=== PATIENT | female | born 1965 | race Caucasian/White ===

== ENCOUNTER 2018-02-01 14:22 | Inpatient (IN) ==
[2018-02-01] MEDS ORDERED: 0.9 % Sodium Chloride 1,000 ML IVC ONE (14:29)
--- NOTE | 2018-02-01 14:34 | Emergency Department Note ---
Disposition Clinical Impression: Confusion Nausea & vomiting Qualifiers: Vomiting type: unspecified Vomiting Intractability: unspecified Qualified Code( s): R11.2 - Nausea with vomiting, unspecified UTI (urinary tract infection) Qualifiers: Urinary tract infection type: acute cystitis Hematuria presence: without hematuria Qualified Code(s): N30.00 - Acute cystitis without hematuria Disposition: Admitted As Inpatient Condition: Fair Referrals: NONE,PCP [Primary Care Provider] - Dequan Mclean [Family Provider] - Forms: ED Satisfaction Letter Time of Disposition: 16:44 Altered Mental Status HPI - General Chief Complaint: ED Altered Mental Status Stated Complaint: hypergylcemia Time Seen by Provider: 02/01/18 14:27 Source: patient Mode of arrival: ambulatory Limitations: no limitations Nursing Notes Reviewed: Yes Vital Signs Reviewed: Yes - History of Present Illness HPI Narrative: 52-year-old diabetic with nausea vomiting not able to keep anything down with some confusion. MD complaint: altered mental status, other Onset (ago): Just [employer] (Nausea vomiting) Timing confirmed by: spouse Pain Severity: mild Consistency of Symptoms: getting worse Context: history of similar presentation (With UTIs) Associated symptoms: Reports: nausea/vomiting - Related Data Allergies Allergy/AdvReac Type Severity Reaction Status Date / Time codeine AdvReac See Verified 02/01/18 14:26 Comments All systems ED: reviewed and negative except as stated. Constitutional: Reports: fever. Denies: chills, weakness, weight change Eyes: Denies: eye pain, eye discharge, vision change ENT ED: Denies: ear pain, throat pain, dental pain, hearing loss, epistaxis, congestion, dysphagia Cardiovascular: Denies: chest pain, palpitations, dyspnea on exertion, edema, syncope Respiratory: Denies: cough, dyspnea, wheezes, hemoptysis, stridor Gastrointestinal: Denies: abdominal pain, nausea, vomiting, diarrhea, constipation, hematemesis, melena, hematochezia Genitourinary: Denies: dysuria, frequency, hematuria, discharge Musculoskeletal: Reports: arthralgia. Denies: back pain, neck pain, myalgia Integumentary: Denies: rash, abrasion, lesions Neurological: Denies: headache, weakness, numbness, paresthesias, confusion, abnormal gait, vertigo Psychiatric: Denies: anxiety, depression, suicidal thoughts, homicidal thoughts , auditory hallucinations, visual hallucinations Endocrine: Denies: fatigue Hematological/Lymphatic: Denies: easy bleeding, easy bruising Allergic/Immunologic: Denies: facial swelling, urticaria Past Medical History - Past Medical History Medical history: Reports: diabetes, hyperlipidemia, hypertension, thyroid disease Psychiatric history: Reports: no psych history - Social History Smoking Status: Never smoker Alcohol use: Reports: none Drug use: Reports: none Physical Exam - General Limitations: no limitations General appearance: alert, anxious - Head Head exam: atraumatic, normocephalic, normal inspection - Eye Eye exam: Present: normal appearance, PERRL, EOMI - ENT ENT exam: normal exam, normal oropharynx, mucous membranes moist - Neck Neck exam: Present: normal inspection, full ROM, trachea midline - Chest Chest inspection: Present: normal inspection, symmetric chest wall rise - Respiratory Respiratory exam: Present: normal lung sounds bilaterally - Cardiovascular Cardiovascular exam: Present: regular rate, normal rhythm, normal heart sounds - Abdominal Exam Abdominal exam: Present: soft, Non-Tender. Absent: tenderness, distention, guarding, rebound, rigidity - Extremities Exam Extremities exam: Present: normal inspection, full ROM. Absent: tenderness, pedal edema - Expanded Lower Extremity Exam Neurovascular/Tendon exam: Absent: motor deficit, sensory deficit, tendon deficit Gait: observed and normal - Back Exam Back exam: Present: normal inspection, full ROM. Absent: tenderness - Neurological Exam Neurological exam: Present: alert, oriented X3 - Psychiatric Psychiatric exam: Present: normal affect, normal mood - Skin Skin exam: Present: warm, dry, intact, normal color Course Vital Signs Temperature 100.3 F H 02/01/18 14:23 Pulse Rate 122 02/01/18 14:23 Respiratory Rate 16 02/01/18 14:23 Blood Pressure 104/68 02/01/18 14:23 O2 Sat by Pulse Oximetry 95 02/01/18 14:23 Temperature 100.3 F H 02/01/18 14:23 Pulse Rate 109 02/01/18 16:50 Respiratory Rate 20 02/01/18 16:50 Blood Pressure 111/64 02/01/18 16:50 O2 Sat by Pulse Oximetry 95 02/01/18 16:50 Oxygen Delivery Oxygen Delivery Room Air Altered Mental Status - Lab Data Lab results reviewed: Yes I reviewed the patient's lab results. Result diagrams: 02/01/18 14:56 04/01/18 14:56 Lab Results 02/01/18 02/01/18 02/01/18 Range/Units 14:56 14:56 14:56 WBC 9.3 (4.3-11.1) K/mcL RBC 4.74 (3.82-4.97) M/mcL Hgb 13.7 (11.5-15.4) g/dL Hct 39.7 (35.3-44.9) % MCV 83.8 (83.0-100.0) fL MCH 28.9 (28.0-33.3) pg MCHC 34.5 (31.6-35.5) g/dL RDW 13.4 (11.5-14.5) % Plt Count 188 (140-400) K/mcL MPV 10.9 (9.4-12.4) fL Immature Gran % 0.8 (0-4) % Seg Neutrophils % 93.0 % Lymphocytes % 3.7 % Monocytes % 2.1 % Eosinophils % 0.1 % Basophils % 0.3 % Neutrophils # 8.7 (1.6-8.9) K/mcL Lymphocytes # 0.3 L (0.6-4.6) K/mcL Monocytes # 0.2 (0.0-1.3) K/mcL Eosinophils # 0.0 (0.0-0.6) K/mcL Basophils # 0.0 (0.0-0.2) K/mcL PT 10.4 (9.4-12.1) Seconds INR 1.0 APTT 27.9 (26.0-36.0) Seconds Sodium 132 L (136-145) mEq/L Potassium 3.5 (3.5-5.1) mEq/L Chloride 97 L (98-107) mEq/L Carbon Dioxide 19 L (23-29) mEq/L BUN 9 (6-20) mg/dL Creatinine 0.71 (0.60-1.20) mg/dL Est GFR ( Amer) > 60 (> 60) Est GFR (Non-Af Amer) > 60 (> 60) BUN/Creatinine Ratio 13 (6-26) Glucose 364 H (70-105) mg/dL Calculated Osmolality 287 (280-300) Lactic Acid (0.5-2.2) mmol/L Calcium 9.3 (8.6-10.3) mg/dL Total Bilirubin 1.0 (0.3-1.0) mg/dL Direct Bilirubin 0.2 (0.0-0.2) mg/dL Indirect Bilirubin 0.8 (0.0-1.2) mg/dL AST 11 L (13-39) Units/L ALT 12 (7-52) Units/L Alkaline Phosphatase 85 (34-104) Units/L Ammonia (16-53) mcmol/L Troponin I < 0.03 (< 0.04) ng/mL Serum Total Protein 6.9 (6.4-8.9) g/dL Albumin 3.9 (3.5-5.7) g/dL Globulin 3.0 (2.4-3.5) g/dL Albumin/Globulin Ratio 1.3 (1.1-2.2) Urine Color (Yellow) Urine Clarity (Clear) Urine pH (5.0-8.0) pH Units Ur Specific Glendo (1.010-1.025) Urine Protein (Neg-Trace) mg/dL Urine Glucose (UA) (Normal) mg/dL Urine Ketones (Negative) mg/dL Urine Blood (Negative) Urine Nitrite (Negative) Urine Bilirubin (Negative) Urine Urobilinogen (Normal) mg/dL Ur Leukocyte Esterase (Negative) Urine Microscopic RBC (0-3) per hpf Urine Microscopic WBC (0-3) per hpf Ur Squamous Epith Cells (None-Few) per lpf Urine Bacteria (None-Few) per hpf Hyaline Casts (None-Few) per lpf Ur Culture Indicated? (NO) Urine Opiates Screen (Wcktwv=128) ng/mL Ur Barbiturates Screen (Ghiyjc=350) ng/mL Ur Phencyclidine Scrn (Cutoff=25) ng/mL Ur Amphetamines Screen (Wtcxcn=6637) ng/mL U Benzodiazepines Scrn (Wrosre=162) ng/mL Urine Cocaine Screen (Cutoff= 300) ng/mL U Marijuana (THC) Screen (Cutoff = 50) ng/mL Ethyl Alcohol < 10 (Less than 10) mg/dL Specimen Rejected 02/01/18 02/01/18 02/01/18 Range/Units 14:56 14:56 15:20 WBC (4.3-11.1) K/mcL RBC (3.82-4.97) M/mcL Hgb (11.5-15.4) g/dL Hct (35.3-44.9) % MCV (83.0-100.0) fL MCH (28.0-33.3) pg MCHC (31.6-35.5) g/dL RDW (11.5-14.5) % Plt Count (140-400) K/mcL MPV (9.4-12.4) fL Immature Gran % (0-4) % Seg Neutrophils % % Lymphocytes % % Monocytes % % Eosinophils % % Basophils % % Neutrophils # (1.6-8.9) K/mcL Lymphocytes # (0.6-4.6) K/mcL Monocytes # (0.0-1.3) K/mcL Eosinophils # (0.0-0.6) K/mcL Basophils # (0.0-0.2) K/mcL PT (9.4-12.1) Seconds INR APTT (26.0-36.0) Seconds Sodium (136-145) mEq/L Potassium (3.5-5.1) mEq/L Chloride (98-107) mEq/L Carbon Dioxide (23-29) mEq/L BUN (6-20) mg/dL Creatinine (0.60-1.20) mg/dL Est GFR ( Amer) (> 60) Est GFR (Non-Af Amer) (> 60) BUN/Creatinine Ratio (6-26) Glucose (70-105) mg/dL Calculated Osmolality (280-300) Lactic Acid 2.4 H (0.5-2.2) mmol/L Calcium (8.6-10.3) mg/dL Total Bilirubin (0.3-1.0) mg/dL Direct Bilirubin (0.0-0.2) mg/dL Indirect Bilirubin (0.0-1.2) mg/dL AST (13-39) Units/L ALT (7-52) Units/L Alkaline Phosphatase (34-104) Units/L Ammonia (16-53) mcmol/L Troponin I (< 0.04) ng/mL Serum Total Protein (6.4-8.9) g/dL Albumin (3.5-5.7) g/dL Globulin (2.4-3.5) g/dL Albumin/Globulin Ratio (1.1-2.2) Urine Color Yellow (Yellow) Urine Clarity Clear (Clear) Urine pH 6.0 (5.0-8.0) pH Units Ur Specific Glendo 1.030 H (1.010-1.025) Urine Protein Trace (Neg-Trace) mg/dL Urine Glucose (UA) >=1000 H (Normal) mg/dL Urine Ketones 80 H (Negative) mg/dL Urine Blood Negative (Negative) Urine Nitrite Negative (Negative) Urine Bilirubin Negative (Negative) Urine Urobilinogen Normal (Normal) mg/dL Ur Leukocyte Esterase Negative (Negative) Urine Microscopic RBC 3-5 H (0-3) per hpf Urine Microscopic WBC 15-30 H (0-3) per hpf Ur Squamous Epith Cells Many H (None-Few) per lpf Urine Bacteria Few (None-Few) per hpf Hyaline Casts None Seen (None-Few) per lpf Ur Culture Indicated? NO (NO) Urine Opiates Screen (Fqapzj=366) ng/mL Ur Barbiturates Screen (Wzxekf=639) ng/mL Ur Phencyclidine Scrn (Cutoff=25) ng/mL Ur Amphetamines Screen (Sxwmot=7115) ng/mL U Benzodiazepines Scrn (Vwtvvn=523) ng/mL Urine Cocaine Screen (Cutoff= 300) ng/mL U Marijuana (THC) Screen (Cutoff = 50) ng/mL Ethyl Alcohol (Less than 10) mg/dL Specimen Rejected Miscellaneous 02/01/18 02/01/18 Range/Units 15:20 16:09 WBC (4.3-11.1) K/mcL RBC (3.82-4.97) M/mcL Hgb (11.5-15.4) g/dL Hct (35.3-44.9) % MCV (83.0-100.0) fL MCH (28.0-33.3) pg MCHC (31.6-35.5) g/dL RDW (11.5-14.5) % Plt Count (140-400) K/mcL MPV (9.4-12.4) fL Immature Gran % (0-4) % Seg Neutrophils % % Lymphocytes % % Monocytes % % Eosinophils % % Basophils % % Neutrophils # (1.6-8.9) K/mcL Lymphocytes # (0.6-4.6) K/mcL Monocytes # (0.0-1.3) K/mcL Eosinophils # (0.0-0.6) K/mcL Basophils # (0.0-0.2) K/mcL PT (9.4-12.1) Seconds INR APTT (26.0-36.0) Seconds Sodium (136-145) mEq/L Potassium (3.5-5.1) mEq/L Chloride (98-107) mEq/L Carbon Dioxide (23-29) mEq/L BUN (6-20) mg/dL Creatinine (0.60-1.20) mg/dL Est GFR ( Amer) (> 60) Est GFR (Non-Af Amer) (> 60) BUN/Creatinine Ratio (6-26) Glucose (70-105) mg/dL Calculated Osmolality (280-300) Lactic Acid (0.5-2.2) mmol/L Calcium (8.6-10.3) mg/dL Total Bilirubin (0.3-1.0) mg/dL Direct Bilirubin (0.0-0.2) mg/dL Indirect Bilirubin (0.0-1.2) mg/dL AST (13-39) Units/L ALT (7-52) Units/L Alkaline Phosphatase (34-104) Units/L Ammonia 29 (16-53) mcmol/L Troponin I (< 0.04) ng/mL Serum Total Protein (6.4-8.9) g/dL Albumin (3.5-5.7) g/dL Globulin (2.4-3.5) g/dL Albumin/Globulin Ratio (1.1-2.2) Urine Color (Yellow) Urine Clarity (Clear) Urine pH (5.0-8.0) pH Units Ur Specific Glendo (1.010-1.025) Urine Protein (Neg-Trace) mg/dL Urine Glucose (UA) (Normal) mg/dL Urine Ketones (Negative) mg/dL Urine Blood (Negative) Urine Nitrite (Negative) Urine Bilirubin (Negative) Urine Urobilinogen (Normal) mg/dL Ur Leukocyte Esterase (Negative) Urine Microscopic RBC (0-3) per hpf Urine Microscopic WBC (0-3) per hpf Ur Squamous Epith Cells (None-Few) per lpf Urine Bacteria (None-Few) per hpf Hyaline Casts (None-Few) per lpf Ur Culture Indicated? (NO) Urine Opiates Screen Negative (Guhvlv=343) ng/mL Ur Barbiturates Screen Negative (Cwmtxv=777) ng/mL Ur Phencyclidine Scrn Negative (Cutoff=25) ng/mL Ur Amphetamines Screen Negative (Hxmflr=2855) ng/mL U Benzodiazepines Scrn Negative (Gepjvf=035) ng/mL Urine Cocaine Screen Negative (Cutoff= 300) ng/mL U Marijuana (THC) Screen Negative (Cutoff = 50) ng/mL Ethyl Alcohol (Less than 10) mg/dL Specimen Rejected - Radiology Data Radiology results reviewed: Yes I reviewed the patient's radiology results. Chest X-Ray 02/01/18 14:28 IMPRESSION: 1. No acute radiographic abnormality in the chest. D/ / Santy Ness MD / Santy Ness MD Interpreting Provider: Santy Ness MD Cervical Spine CT 02/01/18 14:29 IMPRESSION: No acute abnormality of the cervical spine with multilevel degenerative changes most pronounced at C5-C6 and C6-C7 as described. D/ / Oxana Bishop MD / Oxana Bishop MD Interpreting Provider: Oxana Bishop MD Head CT 02/01/18 14:30 IMPRESSION: No acute intracranial abnormality. D/ / Jorgito Osei MD / Jorgito Osei MD Interpreting Provider: Jorgito Osei MD Checklist - LKW: 3-4.5 hrs Add. Warnings/Precautions Patient/family understanding: The patient/family members have been counseled and understood the risk, benefit , and alternatives of treatment. NIH Stroke Scale - Level of Consciousness LOC: Alert - LOC Questions LOC Questions: Answers both correctly - LOC Commands LOC Commands: Performs both correctly - Best Gaze Best Gaze: Normal - Visual Visual: No visual loss - Facial Palsy Facial Palsy: Normal - Motor Arms Motor Arm-Left: No drift for 10 seconds Motor Arm-Right: No drift for 10 seconds - Motor Legs Motor Leg-Left: No drift for 5 seconds Motor Leg-Right: No drift for 5 seconds - Limb Ataxia Limb Ataxia: Normal, No Ataxia - Sensory Sensory: Normal - Best Language Best Language: No aphasia - Dysarthria Dysarthria: Normal - Extinction and Inattention Extinction and Inattention: Normal - NIHSS Total Score NIHSS Total Score: 0
[2018-02-01 15:11] LABS: Basophils % 0.3 %; Eosinophils % 0.1 %; Hematocrit 39.7 % (35.3-44.9); Hemoglobin 13.7 g/dL (11.5-15.4); Immature Granulocytes % 0.8 % (0-4); Lymphocytes # 0.3 K/mcL (0.6-4.6); Lymphocytes % 3.7 %; Mean Corpuscular HGB Conc 34.5 g/dL (31.6-35.5); Mean Corpuscular Hemoglobin 28.9 pg (28.0-33.3); Mean Corpuscular Volume 83.8 fL (83.0-100.0); Mean Platelet Volume 10.9 fL (9.4-12.4); Monocytes # 0.2 K/mcL (0.0-1.3); Monocytes % 2.1 %; Neutrophils # 8.7 K/mcL (1.6-8.9); Platelet Count 188 K/mcL (140-400); Red Blood Count 4.74 M/mcL (3.82-4.97); Red Cell Distribution Width 13.4 % (11.5-14.5)
[2018-02-01 15:15] LABS: Prothrombin Time 10.4 Seconds (9.4-12.1)
[2018-02-01 15:18] LABS: Activated Partial Thrombo Time 27.9 Seconds (26.0-36.0)
[2018-02-01 15:34] LABS: Bilirubin,Urine Negative (Negative); Blood,Urine Negative (Negative); Clarity,Urine Clear (Clear); Color,Urine Yellow (Yellow); Glucose,Urine (UA) >=1000 mg/dL (Normal); Ketones,Urine 80 mg/dL (Negative); Leukocyte Esterase,Urine Negative (Negative); Nitrite,Urine Negative (Negative); Protein,Urine Trace mg/dL (Neg-Trace); Urobilinogen,Urine Normal (Normal)
[2018-02-01 15:36] LABS: Bacteria,Urine Few per hpf (None-Few); Hyaline Casts,Urine None Seen per lpf (None-Few); Squamous Epithelial Cell,Urine Many per lpf (None-Few); WBC,Urine 15-30 per hpf (0-3)
[2018-02-01 15:38] LABS: Troponin I < 0.03 ng/mL (< 0.04)
[2018-02-01 15:39] LABS: Alanine Aminotransferase 12 Units/L (7-52); Albumin 3.9 g/dL (3.5-5.7); Albumin/Globulin Ratio 1.3 (1.1-2.2); Alkaline Phosphatase 85 Units/L (34-104); Aspartate Amino Transferase 11 Units/L (13-39); BUN/Creatinine Ratio 13 (6-26); Bilirubin,Direct 0.2 mg/dL (0.0-0.2); Bilirubin,Indirect 0.8 mg/dL (0.0-1.2); Blood Urea Nitrogen 9 mg/dL (6-20); Calcium 9.3 mg/dL (8.6-10.3); Carbon Dioxide 19 mEq/L (23-29); Chloride 97 mEq/L (98-107); Ethanol < 10 mg/dL (Less than 10); Glucose 364 mg/dL (70-105); Osmolality,Calculated 287 (280-300); Potassium 3.5 mEq/L (3.5-5.1); Sodium 132 mEq/L (136-145); Total Protein 6.9 g/dL (6.4-8.9); eGFR For African Americans > 60 (> 60); eGFR For Non-African Americans > 60 (> 60)
[2018-02-01 15:43] LABS: Amphetamine Screen,Urine Negative ng/mL (Cutoff=1000); Barbiturate Screen,Urine Negative ng/mL (Cutoff=200); Benzodiazepines Screen,Urine Negative ng/mL (Cutoff=200); Cannabinoid Screen,Urine Negative ng/mL (Cutoff = 50); Cocaine Screen,Urine Negative ng/mL (Cutoff= 300); Opiate Screen,Urine Negative ng/mL (Cutoff=300); Phencyclidine Screen,Urine Negative ng/mL (Cutoff=25)
[2018-02-01] MEDS ORDERED: cefTRIAXone 1,000 MG in Water for inj. (sterile) 20 ML 10 ML IVP ONE (16:36)
--- NOTE | 2018-02-01 17:30 | Internal Med History&Physical ---
Date of Encounter: 02/01/18 Time of Encounter: 17:24 Assessment and Plan (1) Confusion Current visit: Yes Status: Acute Possible metabolic encephalopathy from uncontrolled diabetes, fever, UTI. When I saw the patient, she is alert and oriented 3. Her feels she is back to normal. From examination she does not have focal neurologic deficiency , and slurry speech (2) UTI (urinary tract infection) Current visit: Yes Status: Acute Continue ceftriaxone Qualifiers: Urinary tract infection type: acute cystitis Hematuria presence: without hematuria Qualified Code(s): N30.00 - Acute cystitis without hematuria (3) Diabetes Current visit: Yes Status: Chronic Patient was on metformin and glipizide at home, will add a sliding scale due to the unable to tolerate oral intake Qualifiers: Diabetes mellitus type: type 2 Diabetes mellitus shelter insulin use: without shelter use Diabetes mellitus complication status: without complication Qualified Code(s): E11.9 - Type 2 diabetes mellitus without complications (4) Nausea & vomiting Current visit: Yes Status: Acute Nausea vomiting likely from acute gastritis, supportive care Qualifiers: Vomiting type: unspecified Vomiting Intractability: non-intractable Qualified Code(s): R11.2 - Nausea with vomiting, unspecified (5) Hypertension Current visit: Yes Status: Chronic Continue home medications Qualifiers: Hypertension type: essential hypertension Qualified Code(s): I10 - Essential (primary) hypertension (6) Hyperlipemia Current visit: Yes Status: Chronic Qualifiers: Hyperlipidemia type: other hyperlipidemia Qualified Code(s): E78.4 - Other hyperlipidemia (7) Hypothyroidism Current visit: Yes Status: Chronic Continue home medication Qualifiers: Hypothyroidism type: acquired Qualified Code(s): E03.9 - Hypothyroidism, unspecified (8) IBS (irritable bowel syndrome) Current visit: Yes Status: Chronic Stable Qualifiers: Irritable bowel syndrome type: with diarrhea Qualified Code(s): K58.0 - Irritable bowel syndrome with diarrhea (9) Dehydration Current visit: Yes Status: Acute Continue IV fluids Internal Medicine - H&P: HPI Chief complaint: nausea and vomiting Admitted From: Home Plans for Post Hospital Care: Home History of present illness: Ms. Munoz is a 52 year old female who has history of diabetes,hypothyroidism, hyperlipidemia, hypertension irritata bowel syndrome presented to emergency room for hyperglycemia and nausea vomiting. Patient has history of diabetes on metformin and glipizide developed her nausea and vomiting 2 days ago, unable to keep food down. Her sugar has been running above 400. She feels extremely thirsty, drink a lot of water, and a frequently urination. Her notes stated that she was so tired and and dry mouth. When I saw the patient, she is alert oriented 3. she denies headache, no focal weakness, denies abdominal pain. She does have irritated bowel syndrome has chronic diarrhea. He emergency room she was found UTI WBC 15 to 30. Sugar was 364. She has fever 100.3 influenza is negative. Chest x-ray is negative. She had had a CT of head which is negative, C-spine CT shows DJD's. Patient is going to be admitted for uncontrolled diabetes, hyperglycemia nausea vomiting Dehydration. Past Med Surg Social Fam HX - Past Medical History Medical history: diabetes, hyperlipidemia, hypertension, thyroid disease Psychiatric history: no psych history - Social History Smoking Status: Never smoker Alcohol use: none Drug use: none Internal Medicine - H&P: Meds Atorvastatin [Lipitor] 40 mg PO HS 02/01/18 [History] GlipiZIDE [Glipizide Xl] 5 mg PO BID 02/01/18 [History] Levothyroxine Sodium [Levoxyl] 75 mcg PO DAILY 02/01/18 [History] Lisinopril [Zestril] 5 mg PO DAILY 02/01/18 [History] Metformin HCl [Metformin HCl ER] 500 mg PO BID 02/01/18 [History] 3 Allergy/AdvReac Type Severity Reaction Status Date / Time codeine AdvReac See Verified 02/01/18 14:26 Comments All Systems PM: A 10-system review of systems was performed and is negative for pertinent findings except as documented above in the HPI. - Constitutional Vitals: Temp Pulse Resp BP Pulse Ox 100.3 F H 109 20 111/64 95 02/01/18 14:23 02/01/18 16:50 02/01/18 16:50 02/01/18 16:50 02/01/18 16:50 General appearance: Present: cooperative, A&O X 3, pleasant Exam: CONSTITUTIONAL: Patient appears as an age appropriate female well developed, in no acute distress. EYES Clear sclerae, bilateral pupils are equal, reactive to light and accommodation. Extraocular movements are intact RESPIRATORY: No accessory muscle use, bilateral clear to auscultation, no wheezing, no crackles/rales. CARDIOVASCULAR: Regular heart rate, normal S1 and S2, no murmurs GASTROINTESTINAL: bowel sounds present, soft, no tenderness. No hepatosplenomegaly. No bilateral CVA tenderness MUSCULOSKELETAL: Joints in normal range of motion, no clubbing, no edema, no cyanosis. Bilateral peripheral pulses 2+ LYMPHATIC no lymphadenopathy in neck, groin and axilla bilaterally, no thyromegaly. NEUROLOGIC: CN II to XII are grossly intact, no focal neurological deficit. Deep tendon reflexes 2+ bilaterally. Normal light touch sensation to upper and lower extremity PSYCHIATRIC: Oriented x3, with good insight, mood is euthymic. No hallucinations or delusions. SKIN: Skin warm and dry, no rashes, no open wound. Internal Med - H&P Results - Labs CBC & Chem 7: 02/01/18 14:56 02/01/18 14:56
[2018-02-01] MEDS ORDERED: Dextrose Gel 15 GM/37.5 ML TUBE PO PRN ×2 (17:39)
[2018-02-01] MEDS ORDERED: D5% in Water 1,000 ML IVC PRN (17:39)
[2018-02-01] MEDS ORDERED: *HR* Dextrose 50 % in Water (Syg) 50 ML SYRINGE IVP PRN (17:39)
[2018-02-01] MEDS ORDERED: Naloxone 0.4 MG/ML INJ IVP PRN (17:41)
[2018-02-01] MEDS ORDERED: Ringers Solution, Lactated 3,000 ML IVC SCH (17:45)
[2018-02-01] MEDS: Insulin DETEMIR 100 UNIT/ML X5UNITS SQ SCH (20:27)
[2018-02-01] MEDS: Insulin LISPRO 300 UNITS/3 ML VIAL SQ SCH (20:30)
[2018-02-01] MEDS: Ringers Solution, Lactated 1,000 ML IVC SCH (20:30)
[2018-02-01] MEDS: Ondansetron 4 MG/2 ML VIAL IVP PRN (20:40)
[2018-02-02] MEDS: Ringers Solution, Lactated 1,000 ML IVC SCH ×4 (01:21→19:40)
[2018-02-02 07:39] LABS: BUN/Creatinine Ratio 13 (6-26); Blood Urea Nitrogen 7 mg/dL (6-20); Calcium 8.6 mg/dL (8.6-10.3); Carbon Dioxide 25 mEq/L (23-29); Chloride 102 mEq/L (98-107); Glucose 200 mg/dL (70-105); Magnesium 1.4 mg/dL (1.6-2.6); Osmolality,Calculated 282 (280-300); Potassium 3.1 mEq/L (3.5-5.1); Sodium 134 mEq/L (136-145); eGFR For African Americans > 60 (> 60); eGFR For Non-African Americans > 60 (> 60)
[2018-02-02 07:44] LABS: Hematocrit 34.1 % (35.3-44.9); Hemoglobin 11.6 g/dL (11.5-15.4); Immature Platelets 4.7 % (1.1-6.1); Mean Corpuscular Hemoglobin 28.7 pg (28.0-33.3); Mean Corpuscular Volume 84.4 fL (83.0-100.0); Mean Platelet Volume 10.8 fL (9.4-12.4); Red Blood Count 4.04 M/mcL (3.82-4.97); Red Cell Distribution Width 13.7 % (11.5-14.5)
[2018-02-02] MEDS: Insulin LISPRO 300 UNITS/3 ML VIAL SQ SCH ×4 (08:13→20:37)
[2018-02-02] MEDS: Acetaminophen 325 MG TABLET PO PRN ×2 (08:14→16:08)
[2018-02-02 08:30] LABS: Estimated Average Glucose 289 mg/dl; Hemoglobin A1C 11.7 %
--- NOTE | 2018-02-02 12:43 | Electrocardiograph Report ---
[address] [address] Test Date: 2018-02-01 Pat Name: Minal Munoz Department: 102 Room: 3A23 Gender: F Automotive Finance Manager: Ramandeep : 1965 Requested By: Cristofer Morgan Order Number: [id number] Reading MD: Ryder Wood Measurements Intervals [place] Rate: 108 P: 22 VT: 108 QRS: 42 QRSD: 90 T: 23 QT: 324 QTc: 388 Interpretive Statements SINUS TACHYCARDIA WITH SHORT VT INTERVAL Electronically Signed On 02-02-2018 12:41:46 EDT by Ryder Wood
--- NOTE | 2018-02-02 12:47 | Internal Med Progress Note ---
Date of Encounter: 02/02/18 Time of Encounter: 12:39 - Assessment and plan (1) Hyperglycemia Current Visit: Yes Status: Acute Assessment and plan: Patient with N/V and acute illness unable to take PO meds. Continue sliding scale, continue to hold home medications (2) Sepsis Current Visit: Yes Status: Suspected Assessment and plan: Possible Sepsis versus acute gastroenteritis 2 SIRS criteria on admission - tachycardia and fever Possibly bacterial infection/sepsis versus viral gastritis. Possible UTI though UA was only showing 15-30 but she did complain of dysuria so suspect possible LA elevated at 2.4 - but she was severely dehydrated Continue Rocephin, add azithromycin for possible LRTI Qualifiers: Sepsis type: sepsis due to unspecified organism Qualified Code(s): A41.9 - Sepsis, unspecified organism (3) Confusion Current Visit: Yes Status: Acute Assessment and plan: Patient was dehydrated with elevated glucose, likely cause now resolved and she is at baseline. (4) Dehydration Current Visit: Yes Status: Acute (5) Nausea & vomiting Current Visit: Yes Status: Acute Assessment and plan: Continue Zofran prn Qualifiers: Vomiting type: unspecified Vomiting Intractability: non-intractable Qualified Code(s): R11.2 - Nausea with vomiting, unspecified (6) Diabetes Current Visit: Yes Status: Chronic Assessment and plan: Continue sliding scale encourage PO intake Qualifiers: Diabetes mellitus type: type 2 Diabetes mellitus penitentiary insulin use: without intermediate school teacher use Diabetes mellitus complication status: without complication Qualified Code(s): E11.9 - Type 2 diabetes mellitus without complications (7) Hyperlipemia Current Visit: Yes Status: Chronic Qualifiers: Hyperlipidemia type: other hyperlipidemia Qualified Code(s): E78.4 - Other hyperlipidemia (8) Hypertension Current Visit: Yes Status: Chronic Qualifiers: Hypertension type: essential hypertension Qualified Code(s): I10 - Essential (primary) hypertension (9) Hypothyroidism Current Visit: Yes Status: Chronic Qualifiers: Hypothyroidism type: acquired Qualified Code(s): E03.9 - Hypothyroidism, unspecified (10) IBS (irritable bowel syndrome) Current Visit: Yes Status: Chronic Qualifiers: Irritable bowel syndrome type: with diarrhea Qualified Code(s): K58.0 - Irritable bowel syndrome with diarrhea - Subjective Interval history: No complaints. She had fever overnight with T max 103.1 with HR 105-111. She admits to chills and poor appetite, and headache. She denies chest pain, SOB, neck pain, photophobia, sinus pain, sore throat, rhinorrhea, sputum, abdominal pain. Has chronic diarrhea and states there are no changes. - Constitutional Vitals: Temp Pulse Resp BP Pulse Ox 98.6 F 97 16 103/67 94 02/02/18 11:03 02/02/18 11:03 02/02/18 11:03 02/02/18 11:03 02/02/18 11:03 General appearance: Present: cooperative, A&O X 3, pleasant Exam: CVS: RRR Lungs: CTAB, no wrr Abd: Soft, Nt/nd, normal bowel sounds Ext: no edema Skin: warm, dry, intact Internal Medicine: Result - Labs CBC & Chem 7: 02/02/18 06:36 02/02/18 06:36 Labs: Short CBC 02/02/18 Range/Units 06:36 WBC 5.7 (4.3-11.1) K/mcL Hgb 11.6 D (11.5-15.4) g/dL Hct 34.1 L (35.3-44.9) % Plt Count 147 (140-400) K/mcL BMP 02/02/18 06:36 Sodium 134 L Potassium 3.1 L Chloride 102 Carbon Dioxide 25 BUN 7 Creatinine 0.54 L Glucose 200 H Calcium 8.6 - ABG Interpretation ABG results: PT/INR, D-dimer PT 10.4 Seconds (9.4-12.1) 02/01/18 14:56 Consult Discharge Plan - Plan Referrals: NONE,PCP [Primary Care Provider] - Dequan Mclean [Family Provider] -
[2018-02-02] MEDS ORDERED: Azithromycin 500 MG in D5% in Water 250 ML IVPB SCH (13:00)
[2018-02-02] MEDS: MetroNIDAZOLE 500 MG/100 ML 500 MG/100 ML BAG IVPB SCH (16:04)
[2018-02-02] MEDS ORDERED: cefTRIAXone 1,000 MG in Water for inj. (sterile) 20 ML 10 ML IVP SCH (17:00)
[2018-02-02 20:17] LABS: Adenovirus Not Detected (Not Detect); Bordetella Pertussis Not Detected (Not Detect); Chlamydophila pneumoniae Not Detected (Not Detect); Coronavirus 229E Not Detected (Not Detect); Coronavirus HKU1 Not Detected (Not Detect); Coronavirus NL63 Not Detected (Not Detect); Coronavirus OC43 Not Detected (Not Detect); Human Metapneumovirus Not Detected (Not Detect); Human Rhinovirus/Enterovirus Not Detected (Not Detect); Influenza A Subtype 2009 H1 Not Detected (Not Detect); Influenza A Untypeable Not Detected (Not Detect); Influenza B Not Detected (Not Detect); Mycoplasma pneumoniae Not Detected (Not Detect); Parainfluenza Virus 1 Not Detected (Not Detect); Parainfluenza Virus 2 Not Detected (Not Detect); Parainfluenza Virus 3 Not Detected (Not Detect); Parainfluenza Virus 4 Not Detected (Not Detect); Respiratory Syncytial Virus Not Detected (Not Detect)
[2018-02-02] MEDS: Insulin DETEMIR 100 UNIT/ML X5UNITS SQ SCH (20:39)
[2018-02-03] MEDS: MetroNIDAZOLE 500 MG/100 ML 500 MG/100 ML BAG IVPB SCH ×4 (00:40→23:57)
[2018-02-03] MEDS: Ringers Solution, Lactated 1,000 ML IVC SCH ×5 (03:29→22:14)
[2018-02-03 05:57] LABS: Basophils % 0.4 %; Eosinophils % 0.8 %; Hematocrit 32.5 % (35.3-44.9); Immature Granulocytes % 0.2 % (0-4); Lymphocytes # 1.1 K/mcL (0.6-4.6); Lymphocytes % 23.1 %; Mean Corpuscular HGB Conc 32.3 g/dL (31.6-35.5); Mean Corpuscular Volume 86.7 fL (83.0-100.0); Mean Platelet Volume 11.2 fL (9.4-12.4); Monocytes # 0.4 K/mcL (0.0-1.3); Monocytes % 8.8 %; Neutrophils # 3.3 K/mcL (1.6-8.9); Platelet Count 136 K/mcL (140-400); Red Blood Count 3.75 M/mcL (3.82-4.97); Segmented Neutrophils % 66.7 %
[2018-02-03 05:59] LABS: Hemoglobin 10.5 g/dL (11.5-15.4)
[2018-02-03 06:06] LABS: BUN/Creatinine Ratio 12 (6-26); Blood Urea Nitrogen 6 mg/dL (6-20); Calcium 8.3 mg/dL (8.6-10.3); Carbon Dioxide 25 mEq/L (23-29); Chloride 104 mEq/L (98-107); Glucose 194 mg/dL (70-105); Osmolality,Calculated 283 (280-300); Potassium 3.4 mEq/L (3.5-5.1); Sodium 135 mEq/L (136-145); eGFR For African Americans > 60 (> 60); eGFR For Non-African Americans > 60 (> 60)
[2018-02-03 08:13] LABS: Acinetobacter baumannii by PCR Not Detected (Not Detect); Candida albicans by PCR Not Detected (Not Detect); Candida glabrata by PCR Not Detected (Not Detect); Candida krusei by PCR Not Detected (Not Detect); Candida parapsilosis by PCR Not Detected (Not Detect); Candida tropicalis by PCR Not Detected (Not Detect); Enterococcus by PCR Not Detected (Not Detect); Escherichia coli by PCR Not Detected (Not Detect); Klebsiella oxytoca by PCR Not Detected (Not Detect); Klebsiella pneumoniae by PCR ***DETECTED*** (Not Detect); Pseudomonas aeruginosa by PCR Not Detected (Not Detect); Serratia marcescens by PCR Not Detected (Not Detect); Staphylococcus aureus by PCR Not Detected (Not Detect); Streptococcus agalactiae(B)PCR Not Detected (Not Detect); Streptococcus by PCR Not Detected (Not Detect); Streptococcus pneumoniae PCR Not Detected (Not Detect); Streptococcus pyogenes (A) PCR Not Detected (Not Detect); blaKPC Carbapenem-Resist Gene Not Detected (Not Detect)
[2018-02-03] MEDS: Acetaminophen 325 MG TABLET PO PRN (09:43)
[2018-02-03] MEDS: cefTRIAXone 2,000 MG in Water for inj. (sterile) 20 ML 20 ML IVP SCH (09:45)
[2018-02-03] MEDS: Insulin LISPRO 300 UNITS/3 ML VIAL SQ SCH ×5 (09:47→22:04)
--- NOTE | 2018-02-03 12:32 | Internal Med Progress Note ---
Date of Encounter: 02/03/18 Time of Encounter: 12:30 - Assessment and plan (1) Nausea & vomiting Current Visit: Yes Status: Acute Assessment and plan: Resolved Continue Zofran prn Qualifiers: Vomiting type: unspecified Vomiting Intractability: non-intractable Qualified Code(s): R11.2 - Nausea with vomiting, unspecified (2) Confusion Current Visit: Yes Status: Resolved Assessment and plan: AAOX3, awake, resolved, possibly due to dehydration and hyperglycemia (3) Diabetes Current Visit: Yes Status: Chronic Assessment and plan: FS ACHS FS acceptable at this time Continue current insulin regimen, add meal time insulin , continue sliding scale Qualifiers: Diabetes mellitus type: type 2 Diabetes mellitus regional intermodal truck driver insulin use: without regional intermodal truck driver use Diabetes mellitus complication status: without complication Qualified Code(s): E11.9 - Type 2 diabetes mellitus without complications (4) Hypertension Current Visit: Yes Status: Chronic Assessment and plan: continue current meds, controlled Qualifiers: Hypertension type: essential hypertension Qualified Code(s): I10 - Essential (primary) hypertension (5) Hyperlipemia Current Visit: Yes Status: Chronic Assessment and plan: continue current meds Qualifiers: Hyperlipidemia type: other hyperlipidemia Qualified Code(s): E78.4 - Other hyperlipidemia (6) Hypothyroidism Current Visit: Yes Status: Chronic Assessment and plan: continue home meds Qualifiers: Hypothyroidism type: acquired Qualified Code(s): E03.9 - Hypothyroidism, unspecified (7) IBS (irritable bowel syndrome) Current Visit: Yes Status: Chronic Qualifiers: Irritable bowel syndrome type: with diarrhea Qualified Code(s): K58.0 - Irritable bowel syndrome with diarrhea (8) Dehydration Current Visit: Yes Status: Acute Assessment and plan: resolved, discontinue IVF hdyration (9) Sepsis Current Visit: Yes Status: Suspected Assessment and plan: Possible Sepsis versus acute gastroenteritis 2 SIRS criteria on admission - tachycardia and fever Possibly bacterial infection/sepsis versus viral gastritis. Possible UTI though UA was only showing 15-30 but she did complain of dysuria so suspect possible LA elevated at 2.4 - improved with fluids, but she was severely dehydrated Blood culture on admission shows GNR Repeat blood culture sent today 02/03 Restart patient on Ceftriaxone, continue flagyl for diverticulitis Qualifiers: Sepsis type: sepsis due to unspecified organism Qualified Code(s): A41.9 - Sepsis, unspecified organism (10) Hyperglycemia Current Visit: Yes Status: Acute Assessment and plan: as in diabetes (11) Gram-negative bacteremia Current Visit: Yes Status: Acute Assessment and plan: Blood culture done 02/01 with GNR in one bottle Repeat blood culture sent today 02/03 Continue ceftriaxone-2g daily Follow repeat blood culture - Time Spent With Patient Total time spent is greater than 50% in coordination of care (as documented) at patient's floor/unit and/or counseling patient: - Subjective Interval history: Seen and examined at the bedside with family States she had an elevated blood sugar this a.m She otherwise denies new complains - Constitutional Vitals: Temp Pulse Resp BP Pulse Ox 98.8 F 91 14 104/65 93 02/03/18 11:06 02/03/18 11:06 02/03/18 11:06 02/03/18 11:06 02/03/18 11:06 General appearance: Present: cooperative, A&O X 3, pleasant - Head Head exam: Present: atraumatic, normocephalic - Eye Eye exam: Present: PERRL, conjuntiva pink, sclera anicteric Pupils: Present: PERRL - Neck Neck exam general surgery: Present: supple, trachea midline. Absent: lymphadenopathy - Respiratory Respiratory exam: Present: CTAB. Absent: accessory muscle use, rales, rhonchi, wheezes - Cardiovascular Cardiovascular exam: Present: RRR, +S1, +S2. Absent: diastolic murmur, gallop, rubs, systolic murmur - GI/Abdominal GI/Abdominal exam: Present: normal bowel sounds, soft, no peritoneal signs. Absent: distended, tenderness - Extremities Exam Extremities exam: Present: warm, radial pulses palpable and symmetrical. Absent : calf tenderness, cyanotic, pedal edema - Neurological Exam Neurological exam: Present: alert, CN II-XII intact, oriented X3, no focal deficits. Absent: pronater drift, facial droop, speech deficit - Skin Skin exam: Present: dry, intact Internal Medicine: Result - Labs CBC & Chem 7: 02/03/18 04:10 02/03/18 04:10 Labs: Short CBC 02/03/18 Range/Units 04:10 WBC 4.9 (4.3-11.1) K/mcL Hgb 10.5 L (11.5-15.4) g/dL Hct 32.5 L (35.3-44.9) % Plt Count 136 L (140-400) K/mcL Neutrophils # 3.3 (1.6-8.9) K/mcL BMP 02/03/18 04:10 Sodium 135 L Potassium 3.4 L Chloride 104 Carbon Dioxide 25 BUN 6 Creatinine 0.49 L Glucose 194 H Calcium 8.3 L - ABG Interpretation ABG results: PT/INR, D-dimer PT 10.4 Seconds (9.4-12.1) 02/01/18 14:56 - Impressions Impressions Abdomen/Pelvis CT 02/02/18 12:38 IMPRESSION: Mild diverticulitis involving the descending colon. Nonspecific bladder wall thickening. D/ / 02/02/2018 13:48:41 Hua Steele MD / ofelia Interpreting Provider: Hua Steele MD Consult Discharge Plan - Plan Referrals: NONE,PCP [Primary Care Provider] - Dequan Mclean [Family Provider] -
--- NOTE | 2018-02-03 19:18 | Electrocardiograph Report ---
[address] [address] Test Date: 2018-02-01 Pat Name: Minal Munoz Department: 102 Room: 3A23 Gender: F Chief Investigator: Ramandeep : 1965 Requested By: Elizabeth De La Cruz Order Number: [id number] Reading MD: Ryder Wood Measurements Intervals [place] Rate: 108 P: 25 MN: 112 QRS: 42 QRSD: 88 T: 20 QT: 312 QTc: 376 Interpretive Statements SINUS TACHYCARDIA WITH SHORT MN INTERVAL ABNORMAL RHYTHM ECG BASELINE ARTIFACT COMPLICATES ACCURATE INTERPRETATION Electronically Signed On 02-03-2018 19:16:49 EDT by Ryder Wood
[2018-02-03] MEDS: Insulin DETEMIR 100 UNIT/ML X5UNITS SQ SCH (22:05)
[2018-02-04] MEDS: Ondansetron 4 MG/2 ML VIAL IVP PRN (03:03)
[2018-02-04] MEDS: Acetaminophen 325 MG TABLET PO PRN ×2 (03:03→13:47)
[2018-02-04 05:35] LABS: Basophils % 0.5 %; Eosinophils # 0.1 K/mcL (0.0-0.6); Eosinophils % 2.3 %; Hematocrit 30.7 % (35.3-44.9); Hemoglobin 10.1 g/dL (11.5-15.4); Immature Granulocytes % 0.2 % (0-4); Lymphocytes # 1.3 K/mcL (0.6-4.6); Lymphocytes % 29.3 %; Mean Corpuscular HGB Conc 32.9 g/dL (31.6-35.5); Mean Corpuscular Hemoglobin 28.5 pg (28.0-33.3); Mean Corpuscular Volume 86.5 fL (83.0-100.0); Mean Platelet Volume 10.9 fL (9.4-12.4); Monocytes # 0.4 K/mcL (0.0-1.3); Neutrophils # 2.6 K/mcL (1.6-8.9); Platelet Count 125 K/mcL (140-400); Red Blood Count 3.55 M/mcL (3.82-4.97); Red Cell Distribution Width 13.6 % (11.5-14.5); Segmented Neutrophils % 58.7 %
[2018-02-04 05:57] LABS: BUN/Creatinine Ratio 15 (6-26); Blood Urea Nitrogen 7 mg/dL (6-20); Calcium 8.5 mg/dL (8.6-10.3); Carbon Dioxide 25 mEq/L (23-29); Chloride 105 mEq/L (98-107); Glucose 195 mg/dL (70-105); Osmolality,Calculated 287 (280-300); Potassium 3.7 mEq/L (3.5-5.1); Sodium 137 mEq/L (136-145); eGFR For African Americans > 60 (> 60); eGFR For Non-African Americans > 60 (> 60)
[2018-02-04] MEDS: Ringers Solution, Lactated 1,000 ML IVC SCH (06:32)
[2018-02-04] MEDS: cefTRIAXone 2,000 MG in Water for inj. (sterile) 20 ML 20 ML IVP SCH (09:11)
[2018-02-04] MEDS: MetroNIDAZOLE 500 MG/100 ML 500 MG/100 ML BAG IVPB SCH ×3 (09:15→23:39)
[2018-02-04] MEDS: Insulin LISPRO 300 UNITS/3 ML VIAL SQ SCH ×8 (09:26→20:49)
--- NOTE | 2018-02-04 12:26 | Internal Med Progress Note ---
Date of Encounter: 02/04/18 Time of Encounter: 12:25 - Assessment and plan (1) Nausea & vomiting Current Visit: Yes Status: Resolved Assessment and plan: Resolved Continue Zofran prn Qualifiers: Vomiting type: unspecified Vomiting Intractability: non-intractable Qualified Code(s): R11.2 - Nausea with vomiting, unspecified (2) Confusion Current Visit: Yes Status: Resolved Assessment and plan: AAOX3, awake, resolved, possibly due to dehydration and hyperglycemia (3) Diabetes Current Visit: Yes Status: Chronic Assessment and plan: FS ACHS FS acceptable at this time Continue current insulin regimen, add meal time insulin , continue sliding scale Qualifiers: Diabetes mellitus type: type 2 Diabetes mellitus retirement insulin use: without terminal manager use Diabetes mellitus complication status: without complication Qualified Code(s): E11.9 - Type 2 diabetes mellitus without complications (4) Hypertension Current Visit: Yes Status: Chronic Assessment and plan: continue current meds, controlled Qualifiers: Hypertension type: essential hypertension Qualified Code(s): I10 - Essential (primary) hypertension (5) Hyperlipemia Current Visit: Yes Status: Chronic Assessment and plan: continue current meds Qualifiers: Hyperlipidemia type: other hyperlipidemia Qualified Code(s): E78.4 - Other hyperlipidemia (6) Hypothyroidism Current Visit: Yes Status: Chronic Assessment and plan: continue home meds Qualifiers: Hypothyroidism type: acquired Qualified Code(s): E03.9 - Hypothyroidism, unspecified (7) IBS (irritable bowel syndrome) Current Visit: Yes Status: Chronic Assessment and plan: chronic, stable Qualifiers: Irritable bowel syndrome type: with diarrhea Qualified Code(s): K58.0 - Irritable bowel syndrome with diarrhea (8) Dehydration Current Visit: Yes Status: Resolved Assessment and plan: resolved with IVF hdyration (9) Sepsis Current Visit: Yes Status: Acute Assessment and plan: Sepsis with fever and tachycardia on admission UTI, DOverticulitis and GN bacteremia LA elevated at 2.4 - improved with fluids, but she was severely dehydrated Blood culture on admission shows gram-negative bacteremia due to Klebsiella and Enterobacteriacea Repeat blood culture sent 02/03 Continue Ceftriaxone, continue flagyl for diverticulitis Await sensitivity and final cultures Qualifiers: Sepsis type: sepsis due to unspecified organism Qualified Code(s): A41.9 - Sepsis, unspecified organism (10) Hyperglycemia Current Visit: Yes Status: Acute Assessment and plan: as in diabetes (11) Gram-negative bacteremia Current Visit: Yes Status: Acute Assessment and plan: Blood culture done 02/01 with Gram-negative bacteremia due to Klebsiella and Enterobacteriacea Repeat blood culture sent 02/03 Continue ceftriaxone-2g daily Follow repeat blood culture & sensitivity - Time Spent With Patient Total time spent is greater than 50% in coordination of care (as documented) at patient's floor/unit and/or counseling patient: - Subjective Interval history: Seen and examined at the bedside with family She was admitted and being managed for sepsis secondary to urinary tract infection, gram-negative bacteremia due to Klebsiella and Enterobacteriacea , as well as diverticulitis. She has remained afebrile in the past 24 hours, repeat blood culture done. 318 is pending She has no new complaints her white count has been normal since admission Her diabetes is uncontrolled with an A1c greater than 11 - Constitutional Vitals: Temp Pulse Resp BP Pulse Ox 98.1 F 87 17 128/84 97 02/04/18 10:55 02/04/18 10:55 02/04/18 10:55 02/04/18 10:55 02/04/18 10:55 General appearance: Present: cooperative, A&O X 3, pleasant - Head Head exam: Present: atraumatic, normocephalic - Eye Eye exam: Present: PERRL, conjuntiva pink, sclera anicteric Pupils: Present: PERRL - Neck Neck exam general surgery: Present: supple, trachea midline. Absent: lymphadenopathy - Respiratory Respiratory exam: Present: CTAB. Absent: accessory muscle use, rales, rhonchi, wheezes - Cardiovascular Cardiovascular exam: Present: RRR, +S1, +S2. Absent: diastolic murmur, gallop, rubs, systolic murmur - GI/Abdominal GI/Abdominal exam: Present: normal bowel sounds, soft, no peritoneal signs. Absent: distended, tenderness - Extremities Exam Extremities exam: Present: warm, radial pulses palpable and symmetrical. Absent : calf tenderness, cyanotic, pedal edema - Neurological Exam Neurological exam: Present: alert, CN II-XII intact, oriented X3, no focal deficits. Absent: pronater drift, facial droop, speech deficit - Skin Skin exam: Present: dry, intact Internal Medicine: Result - Labs CBC & Chem 7: 02/04/18 04:39 02/04/18 04:39 Labs: Short CBC 02/04/18 Range/Units 04:39 WBC 4.4 (4.3-11.1) K/mcL Hgb 10.1 L (11.5-15.4) g/dL Hct 30.7 L (35.3-44.9) % Plt Count 125 L (140-400) K/mcL Neutrophils # 2.6 (1.6-8.9) K/mcL BMP 02/04/18 04:39 Sodium 137 Potassium 3.7 Chloride 105 Carbon Dioxide 25 BUN 7 Creatinine 0.48 L Glucose 195 H Calcium 8.5 L - ABG Interpretation ABG results: PT/INR, D-dimer PT 10.4 Seconds (9.4-12.1) 02/01/18 14:56 Consult Discharge Plan - Plan Referrals: NONE,PCP [Primary Care Provider] - Dequan Mclean [Family Provider] -
[2018-02-04] MEDS: Insulin DETEMIR 100 UNIT/ML X5UNITS SQ SCH (20:44)
[2018-02-05] MEDS: Acetaminophen 325 MG TABLET PO PRN (03:19)
[2018-02-05 08:17] LABS: Mycoplasma pneumoniae IgG 0.07 U/L (<=0.09)
[2018-02-05] MEDS: Insulin LISPRO 300 UNITS/3 ML VIAL SQ SCH ×4 (08:30→12:16)
[2018-02-05] MEDS: cefTRIAXone 2,000 MG in Water for inj. (sterile) 20 ML 20 ML IVP SCH (08:30)
[2018-02-05] MEDS: MetroNIDAZOLE 500 MG/100 ML 500 MG/100 ML BAG IVPB SCH (08:31)
[2018-02-05 10:58] VITALS: BP 158/104
--- NOTE | 2018-02-05 11:39 | Discharge Summary ---
- NOTES TO OUTPATIENT PROVIDER Notes to Outpatient Provider: This patient was admitted for sepsis secondary to urinary tract infection, diverticulitis and Klebsiella pneumonia bacteremia. She also had Enterobacter in the blood.Her diabetes mellitus is uncontrolled with A1c of 11.2 on arrival. The patient reports noncompliance with her diabetes medications, she was placed on insulin inpatient. She was discharged home to continue with 2 more days of Flagyl, as well as 11 more days of OMnicef BID for bacteremia. Her repeat blod culture on 02/03 showed clearance. Her DM medications need adjusted and she deferred this decision to her PCP Date of Encounter: 02/05/18 Time of Encounter: 11:33 - Discharge Diagnosis (1) Nausea & vomiting Priority: Primary Status: Resolved Qualifiers: Vomiting type: unspecified Vomiting Intractability: non-intractable Qualified Code(s): R11.2 - Nausea with vomiting, unspecified (2) Confusion Priority: Primary Status: Resolved (3) Diabetes Priority: Secondary Status: Chronic Qualifiers: Diabetes mellitus type: type 2 Diabetes mellitus chcf insulin use: without chcf use Diabetes mellitus complication status: with hyperglycemia Qualified Code(s): E11.65 - Type 2 diabetes mellitus with hyperglycemia (4) Hypertension Priority: Secondary Status: Chronic Qualifiers: Hypertension type: essential hypertension Qualified Code(s): I10 - Essential (primary) hypertension (5) Hyperlipemia Priority: Secondary Status: Chronic Qualifiers: Hyperlipidemia type: other hyperlipidemia Qualified Code(s): E78.4 - Other hyperlipidemia (6) Hypothyroidism Priority: Secondary Status: Chronic Qualifiers: Hypothyroidism type: acquired Qualified Code(s): E03.9 - Hypothyroidism, unspecified (7) IBS (irritable bowel syndrome) Priority: Secondary Status: Chronic Qualifiers: Irritable bowel syndrome type: with diarrhea Qualified Code(s): K58.0 - Irritable bowel syndrome with diarrhea (8) Dehydration Priority: Primary Status: Resolved (9) Sepsis Priority: Primary Status: Resolved Qualifiers: Sepsis type: sepsis due to unspecified organism Qualified Code(s): A41.9 - Sepsis, unspecified organism (10) Hyperglycemia Priority: Primary Status: Resolved (11) Gram-negative bacteremia Priority: Primary Status: Resolved Hospital course: Ms. Munoz is a 52 year old female who was admitted for sepsis secondary to urinary tract infection, diverticulitis and Klebsiella pneumonia bacteremia. She also had Enterobacter in the blood. She also had lactic acidosis on admission, as well as fever and tachycardia. She did not have leukocytosis. Workup revealed suspected urinary tract infection and diverticulitis, a source of sepsis. Blood culture done showed Klebsiella pneumoniae and Enterobacteriaceae. She was started on ceftriaxone and Flagyl, repeat blood culture sent for 01/03/18 returned with no growth. The patient has been afebrile for 48 hours and she has no leukocytosis. Her diabetes mellitus is uncontrolled with A1c of 11.2 on arrival. The patient reports noncompliance with her diabetes medications, she was placed on insulin inpatient. She was seen and evaluated this morning, with no complaints, no abdominal pain, no diarrhea or constipation. No nausea or vomiting. She was discharged home to continue with 2 more days of Flagyl, as well as 11 more days of OMnicef BID for bacteremia. Her DM medications need adjusted and she deferred this decision to her PCP Discharge discussed with: patient, nurse, case management - Time Spent with Patient Total time spent providing and/or coordinating discharge services: Greater than 30 minutes - Discharge Medications Prescriptions: Cefdinir [Omnicef] 300 mg PO BID #22 capsule metroNIDAZOLE [Flagyl] 500 mg PO TID #6 tablet Home Medications: Atorvastatin [Lipitor] 40 mg PO HS 02/01/18 [History] GlipiZIDE [Glipizide Xl] 5 mg PO BID 02/01/18 [History] Levothyroxine Sodium [Levoxyl] 75 mcg PO DAILY 02/01/18 [History] Lisinopril [Zestril] 5 mg PO DAILY 02/01/18 [History] Metformin HCl [Metformin HCl ER] 500 mg PO BID 02/01/18 [History] Cefdinir [Omnicef] 300 mg PO BID #22 capsule 02/05/18 [Rx] metroNIDAZOLE [Flagyl] 500 mg PO TID #6 tablet 02/05/18 [Rx] Allergies/Adverse Reactions: 3 Allergy/AdvReac Type Severity Reaction Status Date / Time codeine AdvReac See Verified 02/01/18 14:26 Comments Date of admission: 02/04/18 12:40 Primary care physician: PCP NONE Discharging clinician: Faheem Birch Anticipated date of discharge: 02/05/18 - Constitutional Vitals: Temp Pulse Resp BP Pulse Ox 97.5 F L 94 16 158/104 95 02/05/18 10:57 02/05/18 10:57 02/05/18 10:57 02/05/18 10:57 02/05/18 10:57 General appearance: Present: cooperative, A&O X 3, pleasant - Head Head exam: Present: atraumatic, normocephalic - Eye Eye exam: Present: PERRL, conjuntiva pink, sclera anicteric Pupils: Present: PERRL - Neck Neck exam general surgery: Present: supple, trachea midline. Absent: lymphadenopathy - Respiratory Respiratory exam: Present: CTAB. Absent: accessory muscle use, rales, rhonchi, wheezes - Cardiovascular Cardiovascular exam: Present: RRR, +S1, +S2. Absent: diastolic murmur, gallop, rubs, systolic murmur - GI/Abdominal GI/Abdominal exam: Present: normal bowel sounds, soft, no peritoneal signs. Absent: distended, tenderness - Extremities Exam Extremities exam: Present: warm, radial pulses palpable and symmetrical. Absent : calf tenderness, cyanotic, pedal edema - Neurological Exam Neurological exam: Present: alert, CN II-XII intact, oriented X3, no focal deficits. Absent: pronater drift, facial droop, speech deficit - Skin Skin exam: Present: dry, intact - Patient Status Disposition: Home, Self-Care Condition: Good Functional capacity at discharge: independent ambulation Overall status at discharge: patient is back to baseline - Discharge Instructions Instructions: Urinary Tract Infection in Women (DC), Sepsis (DC) Follow Up With: Carlota Salazar [Other] - 02/12/18 9:00 am Additional Instructions: Follow-up appointments: If there is not an appointment listed below, please call your physician and schedule a follow-up appointment. If you have congestive heart failure and your symptoms return, make an appointment with your physician. Medication List: Carry an up to date list of medications you are taking at all time. We have given you an updated medication list including any new medications that you have been prescribed. Please provide that list to your primary provider Symptoms: If your condition changes or you experience any of the following symptoms, notify your physician immediately: Unusual or worsening pain, fever, persistent nausea and vomiting, bleeding, increase in swelling (especially in your legs), sudden weight gain, extreme dizziness, chest pain, increased drainage or redness from a wound or incision. Go to the emergency department if you experience a problem with breathing. Weights: If you have a history of swelling or shortness of breath, weigh yourself daily and notify your physician if you have a weight gain of two or more pounds in one day or 5 or more pounds in a week. If you experience any of the warning signs for stroke: Sudden numbness or weakness of the face, arm or leg; especially on one side of the body, sudden confusion, trouble speaking or understanding, sudden trouble seeing in one or both eyes, sudden trouble walking, dizziness, loss of balance or coordination, sudden sever headache with no cause; Call 911 or go to the emergency room. Stroke is a medical emergency. Some risk factors for stroke: Age, cigarette smoking, diabetes, excessive alcohol consumption, family history , high blood pressure, overweight, physical inactivity, prior stroke, heart attack, diagnosis of carotid artery stenosis or other artery disease. If you smoke, STOP: Smoking or tobacco use significantly increases your risk of heart and lung disease. Your chance of disease greatly increases if you continue to smoke. For more information, call the [place] tobacco quit line for smoking cessation QUIT-NOW ( ) - Diet and Activity Activity: resume usual activities as tolerated Diet: diabetic diet, low fat, low cholesterol, low salt diet
== END 2018-02-05 13:30 | disposition home or self-care (01) | DRG 872 ==
LOC: 3ANU 14:22 → EMEROO 14:22 → SUATTDRO 16:52 → 3ANU 17:22
PROVIDERS: ADMIT Hospitalist; ATTEND Internal Medicine